=== PATIENT | male | born 1970 | race Caucasian/White ===

== ENCOUNTER 2017-02-12 02:02 | Emergency (ER) | payer OTHER ==
[2017-02-12] MEDS ORDERED: Sodium Chloride 0.9% 1,000 ML ONE (02:30)
[2017-02-12] MEDS ORDERED: HYDROmorphone 1 MG/ML Syringe ONE (02:31)
[2017-02-12] MEDS ORDERED: Ketorolac 30 MG/ML SDV ONE (02:31)
[2017-02-12] MEDS ORDERED: Ondansetron 4 MG/2 ML SDV ONE (02:32)
[2017-02-12] MEDS ORDERED: HYDROmorphone 0.5 MG/0.5 ML Syringe ONE (04:00)
--- NOTE | 2017-02-12 09:37 | CT ---
CT abdomen and pelvis Technique: Multiple axial sections were obtained from above the dome of the diaphragm inferiorly through the pubic symphysis. Intravenous and oral contrast not utilized. Study has been performed as a ureteral stone protocol. Findings: 6.7 mm obstructing stone is identified within the proximal right ureter located slightly past the UPJ passing proximal hydronephrosis. No abnormal calcifications are seen within the kidneys. No additional abnormal calcifications are seen within the ureters. Visualized lung bases shows nothing acute. Mild fatty infiltration is seen within the liver. Spleen appears within normal limits. Adrenal glands show no nodule. Pancreas appears within normal limits. Gallbladder shows no calcified gallstones. Aorta shows no aneurysmal dilatation. No retroperitoneal adenopathy or mesenteric abnormalities are seen. Appendix is seen which appears normal. No pelvic mass or adenopathy is seen. No free fluid or inflammatory change is seen within the abdomen or pelvis. Bone window settings were reviewed which show slight degenerative change scattered throughout the spine. Impression: 1. 6.7 mm obstructing stone within the proximal right ureter slightly past UPJ. This causes proximal hydronephrosis. 2. Fatty infiltration within the liver. 3. No other acute abnormality is seen on noncontrast CT study of the abdomen and pelvis. Diagnostic code #3
== END 2017-02-12 04:22 ==
LOC: JD.ED 02:02
DX: N13.2 Hydronephrosis with renal and ureteral calculous obstruction (principal)
CPT/HCPCS: 36415; 74176; 74176-26; 80053; 81003; 83690; 85025; 96361; 96374; 96375; 96376; 99283; 99284-25

== ENCOUNTER 2017-11-05 12:16 | Emergency (ER) | payer BC, OTHER ==
--- NOTE | 2017-11-05 12:42 | EDM.PDOC ---
ED HPI GENERAL MEDICAL PROBLEM - General Chief Complaint: Chest Pain Stated Complaint: persistent cough Time Seen by Provider: 11/05/17 12:23 Source of Information: Reports: Patient History Limitations: Reports: No Limitations - History of Present Illness INITIAL COMMENTS - FREE TEXT/NARRATIVE: Patient is a 47-year-old male who presents to the ED complaining of persistent cough for the past few months. States after being sick this winter states the cough has persisted. Cough is mild in nature. Worse in the evening. Has noticed at times some slight wheezing. Cough is nonproductive. Does note postnasal drip and mild sinus congestion. At times faint sore throat present. No ear discomfort. Does not have any history of seasonal allergies. There's been no documented fever. He has no chest pain and/or shortness of breath. States at times with coughing he develops some left-sided chest tightness with no pain. States this is mild in nature. There is no shortness of breath or chest pain with exertion. Pain does not radiate into his back, neck, and/or arms. He has no history of blood clots in his lungs or legs. He has not noticed any weight as of recent and/or edema to his lower extremities. He denies any orthopnea and or PND. Denies any abdominal pain, nausea/vomiting, palpitations, dizziness, fever, recent sick exposures, or any additional complaints. He is here just to have a chest x-ray to ensure he does not have walking pneumonia. He's had this in the past. Has a history of hypertension and kidney stones. He is on losartan HCTZ. Patient does not smoke nor does he use any recreational drugs. Dad/Mom both have CAD in the 60's. PCP is Bandar Blanco. Left Chest Pain Score (Numeric/FACES): 2 - Related Data Allergies Allergy/AdvReac Type Severity Reaction Status Date / Time No Known Allergies Allergy Verified 11/05/17 12:27 Home Meds: Home Meds Albuterol [Proventil HFA] 200 puff INH Q4H PRN #1 inhaler 11/05/17 [Rx] Losartan/Hydrochlorothiazide [Losartan-HCTZ 50-12.5 MG] 1 tab PO DAILY 11/05/17 [History] Past Medical History Cardiovascular History: Reports: Hypertension Social & Family History - Tobacco Use Smoking Status *Q: Former Smoker Used Tobacco, but Quit: Yes Month/Year Tobacco Last Used: 1 year ago Second Hand Smoke Exposure: No - Caffeine Use Caffeine Use: Reports: Coffee - Recreational Drug Use Recreational Drug Use: No ED ROS GENERAL - Review of Systems Review Of Systems: ROS reveals no pertinent complaints other than HPI. ED EXAM, GENERAL - Physical Exam Exam: See Below Exam Limited By: No Limitations General Appearance: Alert, WD/WN, No Apparent Distress Ears: Hearing Grossly Normal Nose: Normal Inspection Throat/Mouth: Normal Inspection, Normal Oropharynx, Normal Voice, No Airway Compromise Head: Atraumatic, Normocephalic Neck: Normal Inspection, Supple, Non-Tender, Full Range of Motion Respiratory/Chest: No Respiratory Distress, Lungs Clear, Normal Breath Sounds, No Accessory Muscle Use, Chest Non-Tender Cardiovascular: Normal Peripheral Pulses, Regular Rate, Rhythm Peripheral Pulses: 4+: Radial (L), Radial (R) GI/Abdominal: Normal Bowel Sounds, Soft, Non-Tender, No Organomegaly, No Distention Extremities: Normal Inspection, Non-Tender, No Pedal Edema, Normal Capillary Refill Neurological: Alert, Oriented, CN II-XII Intact, Normal Cognition, No Motor/ Sensory Deficits Psychiatric: Normal Affect, Normal Mood Skin Exam: Warm, Dry, Intact, Normal Color Course - Vital Signs Last Recorded V/S: Last Vital Signs Temp 97.7 F 11/05/17 12:22 Pulse 76 11/05/17 12:22 Resp 18 11/05/17 12:22 BP 161/99 H 11/05/17 12:22 Pulse Ox 95 11/05/17 12:22 - Orders/Labs/Meds Orders: Active Orders 24 hr Category Date Time Status EKG Documentation Completion [RC] ASDIRECTED Care 11/05/17 12:25 Active EKG 12 Lead [EK] Stat Ther 11/05/17 12:25 Ordered - Re-Assessments/Exams Free Text/Narrative Re-Assessment/Exam: EKG: Sinus rhythm at rate of 81. IVCD, consider RBBB. MO 162.ATc 439. No acute ST changes. CXR will be ordered. No labs will be obtained. Patient herrera not want any labs done. States he wants to make sure this is not pneumonia. 1325 CXR impression: No acute findings noted. Reviewed with Dr. Fitzpatrick. Final interpretation is pending. Discuss results of the EKG and chest x-ray with the patient. As discussed at this point I believe the cough is most likely secondary to the postnasal drip. Will have the patient take Flonase and Claritin daily. In relation to the intermittent chest wall tightness that comes on with coughing. Suspect this is chest wall and related. Don't believe this is related to his heart but further evaluation by PCP is suggested. Patient has no additional questions or concerns and in agreement of treatment plan. The patient remained hemodynamically stable while under my care in the E.D. I discussed the concerning symptoms for which to return to the E.D. with the patient. The patient verbalized understanding. All questions were answered. Departure - Departure Time of Disposition: 13:58 Disposition: Home, Self-Care 01 Condition: Good Clinical Impression: Chronic cough, Postnasal drip, Atypical chest pain Seasonal allergic rhinitis Qualifiers: Allergic rhinitis trigger: unspecified Qualified Code(s): J30.2 - Other seasonal allergic rhinitis - Discharge Information Prescriptions: Albuterol [Proventil HFA] 200 puff INH Q4H PRN #1 inhaler PRN Reason: Wheezing Instructions: Allergies, Adult, [id number], Nasal Allergies, [id number], Nonspecific Chest Pain, Cough, Adult Referrals: Ani Michaels MD [Primary Care Provider] - Forms: ED Department Discharge Additional Instructions: As discussed suspect cause of chronic cough is secondary to postnasal drip. Most likely related to seasonal or other form of allergies. Treatment will be Flonase 1 spray to each nare twice a day and claritan 10 mg everyday. Followup with PCP within the next week for reevaluation. In addition I suspect pain to the left anterior chest is related to chest wall discomfort. You complained of some wheezing at HS. Thus will have you take albuterol inh 1 puff every 4 hrs as needed. May improve symptoms as HS.Return to the E.D. if you develop any new or worsening symptoms. - My Orders Last 24 Hours: My Active Orders 11/05/17 12:25 EKG Documentation Completion [RC] ASDIRECTED EKG 12 Lead [EK] Stat - Assessment/Plan Last 24 Hours: My Active Orders 11/05/17 12:25 EKG Documentation Completion [RC] ASDIRECTED EKG 12 Lead [EK] Stat
--- NOTE | 2017-11-05 13:48 | CR ---
Chest: Portable view of the chest was obtained. Comparison: No previous study. Heart size and mediastinum are normal. Slight linear density is seen at the left mid to lower lung compatible with scar or minimal atelectasis. Lungs otherwise are clear. Bony structures show slight scoliosis within the spine. Scattered disc space narrowing and endplate osteophytes also noted within the thoracic spine. Impression: 1. Incidental findings. Nothing acute is seen on portable chest x-ray. Diagnostic code #2
== END 2017-11-05 14:16 | disposition home or self-care (01) ==
LOC: JD.ED 12:16
DX: R07.89 Other chest pain (principal); J30.2 Other seasonal allergic rhinitis; R09.82 Postnasal drip; I10 Essential (primary) hypertension; Z87.891 Personal history of nicotine dependence
CPT/HCPCS: 71045; 71045-26; 93005; 99285-25